=== PATIENT | male | born 1975 | race Caucasian/White ===

== ENCOUNTER 2025-06-16 17:29 | Emergency (ER) | payer BC, SELFPAY ==
--- OUTSIDE RECORDS SUMMARY | 2025-06-16 17:50 | XMS_ITS | Encounter Summary ---
Author Organization [facility] Address [address] [facility] [place] [address] Phone Care Team Providers Care Command And Control Name Role Phone Cristina Esquivellizet CARSON Primary Care Provider Reason for Visit * Reason Comments Other Encounter Details Date Type Department Care Team (Late st Contact Info) Description 06/06/2021 Refill [facility] [address] [place] [address] Po Ramos MD [address], [place] [address] Other Social History Tobacco Use Types Packs/Day Years Used Date Smoking Tobacco: Former Smokeless Tobacco: Never Alcohol Use Standard Drinks/Week Comments Yes 0 (1 standard drink = 0.6 oz pur e alcohol) PHQ-2 Answer Date Recorded PHQ-2 Score 0 09/26/2020 Sex and Gender Information Value Date Recorded Sex Assigned at Not on file Legal Sex Male 2:42 PM CDT Gender Identity Not on file Sexual Orientation Not on file COVID-19 Exposure Response Date Recorded In the last month, have you been in contact with someone who was confirmed or suspected to have Coronavirus / COVID-19? No / Unsure 05/24/2021 3:57 PM CDT documented as of this encounter Functional Status * Patient's Vision Adequate to Safely Complete Daily Activities Answer Date of Assessment Author Yes 12/15/2019 7:11 AM Brie Borden RN * Patient's Judgement Adequate to Safely Complete Daily Activities Answer Date of Assessment Author Yes 12/15/2019 7:11 AM Brie Borden RN documented as of this encounter Mental Status * Patient's Memory Adequate to Safely Complete Daily Activities Answer Entry Date Author Yes 12/15/2019 7:11 AM Brie Borden RN documented in this encounter Plan of Treatment Not on file documented as of this encounter Visit Diagnoses Diagnosis PSVT (paroxysmal supraventricular tachycardia) Paroxysmal supraventricular tachycardia documented in this encounter Care Teams Command And Control Relationship Specialty Start Date End Date Chin Esquivel APRN PCP - General 03/04/19 documented as of this encounter
--- OUTSIDE RECORDS SUMMARY | 2025-06-16 17:50 | XMS_ITS | Encounter Summary ---
Author Organization [facility] Address [address] [facility] [address] Phone Care Team Providers Care Chemist Helper Name Role Phone Chin Esquivel APRN Primary Care Provider Reason for Visit * Reason Comments Other Encounter Details Date Type Department Care Team (Late st Contact Info) Description 09/07/2020 Refill [facility] Family Medicine [facility] [address] [place] [address] Chin Esquivel APRN [address] [place] [address] Asthma, unspecified asthma severity, unspecified whether complicated, unspecified whether persistent Social History Tobacco Use Types Packs/Day Years Used Date Smoking Tobacco: Former Smokeless Tobacco: Never Alcohol Use Standard Drinks/Week Comments Yes 0 (1 standard drink = 0.6 oz pur e alcohol) Sex and Gender Information Value Date Recorded Sex Assigned at Not on file Legal Sex Male 2:42 PM CDT Gender Identity Not on file Sexual Orientation Not on file documented as of this encounter Functional Status [...] as of this encounter Visit Diagnoses Diagnosis Asthma, unspecified asthma severity, unspecified whether complicated, unspecified whether persistent documented in this encounter Care Teams Chemist Helper Relationship Specialty Start Date End Date Chin Esquivel, YAMILETH PCP - General 03/04/19 documented as of this encounter
--- OUTSIDE RECORDS SUMMARY | 2025-06-16 17:50 | XMS_ITS | Clinical Summary ---
Author Organization [facility] Address [address] [facility] [place] [address] Care Team Providers Care Erp Implementation Consultant Name Role Phone Chin Esquivel YAMILETH Primary Care Provider [phone] Allergies Active Allergy Reactions Criticality Noted Date Comments Amoxicillin Hives 04/01/2018 Mometasone-Formoterol 07/16/2015 Penicillins Low 11/06/2019 Other reaction(s): RASH Medications magnesium chloride (SLOW-MAG) 64 mg Tablet, Delayed Release (E.C.) Take 1 tablet (64 mg total) by mouth once daily. Active zinc sulfate (ZINCATE) 50 mg zinc (220 mg) capsule Take 220 mg by mouth once daily. Active sildenafiL (Viagra) 50 MG tabletIndication s:Erectile dysfunction, unspecified erectile dysfunction type Take 1 tablet (50 mg total) by mouth daily as needed for erectile dysfunction. 20 tablet 3 11/30/19 25 Active fluticasone propionate (FLONASE) 50 mcg/actuation nasal sprayIndications :Asthma, unspecified asthma severity, unspecified whether complicated, unspecified whether persistent 1 spray by Each Nostril route 2 (two) times a day. 16 g 3 11/30/19 25 Active fluticasone propion-salmeter oL (ADVAIR) 250-50 mcg/inhalation DISKUSIndication s:Moderate persistent asthma without complication Inhale 1 Inhalation into the lungs 2 (two) times a day. 60 each 3 11/30/19 25 Active meloxicam (MOBIC) 7.5 MG tabletIndication s:Chronic pain of left knee Take 1 tablet by mouth once daily 30 tablet 4 12/27/19 25 Active montelukast (SINGULAIR) 10 mg tabletIndication s:Asthma, unspecified asthma severity, unspecified whether complicated, unspecified whether persistent Take 1 tablet by mouth once daily 30 tablet 4 12/27/19 25 Active irbesartan (AVAPRO) 300 MG tabletIndication s:Essential hypertension Take 1 tablet by mouth once daily 30 tablet 4 12/27/19 25 Active amLODIPine (NORVASC) 5 MG tabletIndication s:Essential hypertension Take 1 tablet by mouth once daily 30 tablet 4 12/27/19 25 Active albuterol sulfate hfa 90 mcg/actuation aerosol inhalerIndicatio ns:Moderate persistent asthma without complication INHALE 2 PUFFS BY MOUTH EVERY 6 HOURS NEEDED FOR WHEEZING OR SHORTNESS OF BREATH 7 g 03/31/20 25 Active hydrOXYzine (ATARAX) 25 MG tabletIndication s:Flea bite of multiple sites TAKE 1 TABLET BY MOUTH THREE TIMES DAILY NEEDED FOR ITCHING 30 tablet 03/31/20 25 Active cyclobenzaprine (FLEXERIL) 10 MG tabletIndication s:Spasm of muscle of lower back Take 1 tablet by mouth three times daily as needed 90 tablet 03/31/20 25 Active cetirizine (ZyrTEC) 10 MG tabletIndication s:Asthma, unspecified asthma severity, unspecified whether complicated, unspecified whether persistent TAKE 1 TABLET BY MOUTH ONCE DAILY AT NIGHT 30 tablet 05/31/20 25 Active cetirizine (ZyrTEC) 10 MG tabletIndication s:Asthma, unspecified asthma severity, unspecified whether complicated, unspecified whether persistent TAKE 1 TABLET BY MOUTH ONCE DAILY AT NIGHT 30 tablet 02/08/20 25 025 Discontinued Active Problems Problem Noted Date Diagnosed Date Allergic rhinitis 09/26/2020 Fatigue 11/09/2019 Essential hypertriglyceridemia 11/09/2019 PSVT (paroxysmal supraventricular tachycardia) 1 12/11/2017 Hypertension 06/25/2017 Asthma 06/25/2017 Polycythemia Hernia, inguinal Encounters Date Type Department Care Team Description 05/31/2025 Refill [facility] Medicine - [place] [address] [place] [address] Chin Esquivel APRN Asthma, unspecified asthma severity, unspecified whether complicated, unspecified whether persistent 03/30/2025 Refill [facility] - [place] [address] [place] [address] Chin Esquivel APRN Moderate persistent asthma without complication; Flea bite of multiple sites; Spasm of muscle of lower back from Last 3 Months Family History Medical History Relation Name Comments Cancer Brother Arthritis Father Diabetes Father Heart disease Father Cancer Mother Relation Name Status Comments Brother Father Mother Alive Social History Tobacco Use Types Packs/Day Years Used Date Smoking Tobacco: Former Cigarettes Q uit: 03/29/2002 Smokeless Tobacco: Never Tobacco Cessation:Counseling Given: Not Answered Alcohol Use Standard Drinks/Week Comments Yes 0 (1 standard drink = 0.6 oz pur e alcohol) PHQ-2 Answer Date Recorded PHQ-2 Score 0 11/30/2024 Sex and Gender Information Value Date Recorded Sex Assigned at Not on file Legal Sex Male 2:42 PM CDT Gender Identity Not on file Sexual Orientation Not on file Last Filed Vital Signs Vital Sign Reading Time Taken Comments Blood Pressure 130/78 11/30/2024 9:18 AM VENDING MACHINE ATTENDANT Pulse 78 11/30/2024 9:18 AM VENDING MACHINE ATTENDANT Temperature 36.9 C (98.4 F) 06/25/2024 12:48 PM CDT Respiratory Rate 20 06/25/2024 12:48 PM CDT Oxygen Saturation 99% 11/30/2024 9:18 AM VENDING MACHINE ATTENDANT Inhaled Oxygen Concentration - - Weight 89.4 kg (197 lb 3.2 oz) 11/30/2024 9:18 A M VENDING MACHINE ATTENDANT Height 177.8 cm (5' 10 ) 11/30/2024 9:18 AM VENDING MACHINE ATTENDANT stated Body Mass Index 28.3 11/30/2024 9:18 AM VENDING MACHINE ATTENDANT Plan of Treatment Health Maintenance Due Date Last Done Comments CT Colonography 1974 FOBT 1974 Fit-DNA 1974 Sigmoidoscopy 1974 DTAP/TDAP/TD VACCINES (1 - Tdap) 1993 Pneumococcal 50+ years (1 of 2 - PCV) 1993 Colon Cancer Screening 2019 Colonoscopy 2019 Influenza Vaccine (#1) 2025 COVID-19 VACCINE ( - 2023-2 5 season) 2025 Postponed from 2024 (Patient Refused) Depression Screening (12+) 11/30/2025 11/30/2024 SHINGLES VACCINES (1 of 2) 11/30/2025 P ostponed from 2024 (Insurance / Financial) Lipid Panel 11/30/2027 11/30/2024, 03/29/2022, 09/26/2020 Tobacco Cessation and Counseling (12+) Completed 11/30/2024 HIV Screening Discontinued Hepatitis C Screening Discontinued Procedures Procedure Name Priority Date/Time Associated Diagnosis Comments LIPID PANEL Routine 11/30/2024 10:07 AM VENDING MACHINE ATTENDANT Annual physical exam Primary hypertension Essential hypertriglyceridemia from Last 3 Months or Most Recently Relevant to Health Maintenance Results * (ABNORMAL) Lipid panel (11/30/2024 10:07 AM VENDING MACHINE ATTENDANT) Cholesterol, Total 307(H) 120 - 200 mg/dl [facility] Triglycerides 129 <=149 mg/dl [facility] HDL-C, Total 60 40 - 60 mg/dl [facility] VLDL Calculated 26 <=30 mg/dl [facility] LDL Cholesterol Calc 221(H) <=99 mg/dl [facility] Cholesterol/HDL-C Ratio 5.1(H) <=5.0 ratio [facility] LDL, HDL-C Ratio 3.7(H) <=3.6 ratio [facility] Comment: Risk of Developing Coronary Heart Disease Female Guidelines Male Guidelines Up to 1.5 Up to 1.0 Low Risk 1.6 to 3.2 1.1 to 3.6 Average Risk 3.3 to 5.0 3.7 to 6.3 Above Average Risk 5.1 to 6.1 6.4 to 8.0 High Risk Non-HDL Cholesterol 247 mg/dl [facility] Comment:The reference range is the patient's target low density lipoprotein plus 30. Blood ENTIRE LEFT UPPER ARM / Unknown 11/30/2024 10:07 AM VENDING MACHINE ATTENDANT 11/30/2024 1:22 PM VENDING MACHINE ATTENDANT Chin Esquivel APRN LAB BLOOD ORDERABLES Final Result [facility] [address] [place] [phone], [place]UST from Last 3 Months or Most Recently Relevant to Health Maintenance Advance Directives * Full Code (Latest Code Status on File) Date Activated Date Inactivated Comments 12/15/2019 10:26 AM 12/15/2019 8:51 PM Question Answer Comments This code status was determined by: Patient * Full Code Date Activated Date Inactivated Comments 12/15/2019 6:54 AM 12/15/2019 10:26 AM Question Answer Comments This code status was determined by: Patient Care Teams Erp Implementation Consultant Relationship Specialty Start Date End Date Chin Esquivel APRN PCP - General 03/04/19
--- OUTSIDE RECORDS SUMMARY | 2025-06-16 17:50 | XMS_ITS | Encounter Summary ---
Author Organization [facility] Address [address] [facility] [place] [address] Phone Care Team Providers Care Mechanical Engineering Lecturer Name Role Phone Chin Esquivel APRN Primary Care Provider Reason for Visit * Reason Comments Other Encounter Details Date Type Department Care Team (Late st Contact Info) Description 01/05/2021 Refill [facility] Family Medicine [facility] [address] [place] [address] Chin Esquivel APRN [address] [place] [address] Erectile dysfunction, unspecified erectile dysfunction type Social History Tobacco Use Types Packs/Day Years [...] as of this encounter Visit Diagnoses Diagnosis Erectile dysfunction, unspecified erectile dysfunction type documented in this encounter Care Teams Mechanical Engineering Lecturer Relationship Specialty Start Date End Date Chin Esquivel APRN PCP - General 03/04/19 documented as of this encounter
--- OUTSIDE RECORDS SUMMARY | 2025-06-16 17:50 | XMS_ITS | Encounter Summary ---
Author Organization [facility] Address [address] [facility] [place] [address] Phone Care Team Providers Care Staff Scientist Name Role Phone Chin Esquivel APRN Primary Care Provider Reason for Visit * Reason Comments Other Encounter Details Date Type Department Care Team (Late st Contact Info) Description 12/05/[address] [facility] Family Medicine [facility] [address] [place] [address] Chin Esquivel APRN [address] [place] [address] Erectile dysfunction, unspecified erectile dysfunction type; PSVT (paroxysmal supraventricular tachycardia); Asthma, unspecified asthma severity, unspecified whether complicated, unspecified whether persistent; Spasm of muscle of lower back; Chronic pain of left knee Social History Tobacco Use Types Packs/Day Years [...] Entry Date Author Yes 12/15/2019 7:11 AM rBie Borden RN documented in this encounter Plan of Treatment Not on file documented as of this encounter Visit Diagnoses Diagnosis Erectile dysfunction, unspecified erectile dysfunction type PSVT (paroxysmal supraventricular tachycardia) Paroxysmal supraventricular tachycardia Asthma, unspecified asthma severity, unspecified whether complicated, unspecified whether persistent Spasm of muscle of lower back Chronic pain of left knee documented in this encounter Care Teams Staff Scientist Relationship Specialty Start Date End Date Cihn Esquivel APRN PCP - General 03/04/19 documented as of this encounter
--- OUTSIDE RECORDS SUMMARY | 2025-06-16 17:50 | XMS_ITS | Encounter Summary ---
Author Organization [facility] Address [address] [facility] [place] [address] Phone Care Team Providers Care Cotton Chopper Name Role Phone Chin Esquivel YAMILETH Primary Care Provider [phone] Reason for Visit * Reason Comments Other Encounter Details Date Type Department Care Team (Late st Contact Info) Description 06/07/2020 Refill [facility] Family Medicine - Jay Valadez [address] [place] [address] Kesha Castillo PAC [address] [place] [address] Asthma, unspecified asthma severity, unspecified whether complicated, unspecified whether persistent; Essential hypertension Social History Tobacco Use Types Packs/Day Years [...] Date Author Yes 12/15/2019 7:11 AM Brie Borden, MASHA documented in this encounter Plan of Treatment Not on file documented as of this encounter Visit Diagnoses Diagnosis Asthma, unspecified asthma severity, unspecified whether complicated, unspecified whether persistent Essential hypertension Unspecified essential hypertension documented in this encounter Care Teams Cotton Chopper Relationship Specialty Start Date End Date Chin Esquivel APRN PCP - General 03/04/19 documented as of this encounter
--- OUTSIDE RECORDS SUMMARY | 2025-06-16 17:50 | XMS_ITS | Encounter Summary ---
Author Organization [facility] Address [address] [facility] [place] [address] Phone Care Team Providers Care Clamp Remover Name Role Phone Chin Esquivel APRN Primary Care Provider Reason for Visit * Reason Comments Other Encounter Details Date Type Department Care Team (Late st Contact Info) Description 07/23/2023 Refill [facility] Family Medicine - Jay Valadez [address] [place] [address] Chin Esquivel APRN [address] [place] [address] Flea bite of multiple sites; Spasm of muscle of lower back; Chronic pain of left knee; Asthma, unspecified asthma severity, unspecified whether complicated, unspecified whether persistent; Essential hypertension; Erectile dysfunction, unspecified erectile dysfunction type Social History Tobacco Use Types Packs/Day Years Used Date Smoking Tobacco: Former Cigarettes Q uit: 03/29/2002 Smokeless Tobacco: Never Alcohol Use Standard Drinks/Week [...] Exposure Response Date Recorded In the last 10 days, have yo u been in contact with someone who was confirmed or suspected to have Coronavirus/COVID-19? No / Unsure 2023 11:37 AM CDT documented as of this encounter Functional [...] Brie Borden RN documented in this encounter Miscellaneous Notes * Telephone Encounter - Chin Esquivel APRN - 07/24/2023 9:41 AM CDT Patient needs an appointment scheduled prior to additional refills. Needs to see us at or establish with new PCP here. * Telephone Encounter - Anna Aguilar CMA - 07/24/2023 9:14 AM CDT Requested Prescriptions Pending Prescriptions Disp Refills ??? hydrOXYzine (ATARAX) 25 MG tablet [Pharmacy Med Name: hydrOXYzine HCl 25 MG Oral Tablet] 30 tablet 0 Sig: TAKE 1 TABLET BY MOUTH THREE TIMES DAILY NEEDED FOR ITCHING ??? cyclobenzaprine (FLEXERIL) 10 MG tablet [Pharmacy Med Name: Cyclobenzaprine HCl 10 MG Oral Tablet] 30 tablet 0 Sig: Take 1 tablet by mouth three times daily as needed ??? meloxicam (MOBIC) 7.5 MG tablet [Pharmacy Med Name: Meloxicam 7.5 MG Oral Tablet] 30 tablet 0 Sig: TAKE 1 TABLET BY MOUTH ONCE DAILY . APPOINTMENT REQUIRED FOR FUTURE REFILLS ??? cetirizine (ZyrTEC) 10 MG tablet [Pharmacy Med Name: Cetirizine HCl 10 MG Oral Tablet] 30 tablet 0 Sig: TAKE 1 TABLET BY MOUTH AT NIGHT ??? fluticasone propionate (FLONASE) 50 mcg/actuation nasal spray [Pharmacy Med Name: Fluticasone Propionate 50 MCG/ACT Nasal Suspension] 16 g 0 Sig: Use 1 spray(s) in each nostril twice daily ??? irbesartan (AVAPRO) 300 MG tablet [Pharmacy Med Name: Irbesartan 300 MG Oral Tablet] 30 tablet 0 Sig: Take 1 tablet by mouth once daily ??? montelukast (SINGULAIR) 10 mg tablet [Pharmacy Med Name: Montelukast Sodium 10 MG Oral Tablet] 30 tablet 0 Sig: Take 1 tablet by mouth once daily ??? sildenafiL (VIAGRA) 25 MG tablet [Pharmacy Med Name: Sildenafil Citrate 25 MG Oral Tablet] 30 tablet 0 Sig: TAKE 1 TABLET BY MOUTH ONCE DAILY NEEDED FOR ERECTILE DYSFUNCTION Last Office Visit Date: 01/23/2023 I am refilling medication based on the [facility] medication refill policy approved/signed by my provider. . documented in this encounter Plan of Treatment Not on file documented as of this encounter Visit Diagnoses Diagnosis Flea bite of multiple sites Spasm of muscle of lower back Chronic pain of left knee Asthma, unspecified asthma severity, unspecified whether complicated, unspecified whether persistent Essential hypertension Unspecified essential hypertension Erectile dysfunction, unspecified erectile dysfunction type documented in this encounter Care Teams Clamp Remover Relationship Specialty Start Date End Date Chin Esquivel APRN PCP - General 03/04/19 documented as of this encounter
--- OUTSIDE RECORDS SUMMARY | 2025-06-16 17:50 | XMS_ITS | Clinical Summary ---
Author Organization [facility] Address [address] [place] [address] Care Team Providers Care Coyote Hunter Name Role Phone AlvinRay leecoy CARSON Primary Care Provider Allergies Active Allergy Reactions Criticality Noted Date Comments Amoxicillin 11/06/2019 Medications budesonide-form oterol (SYMBICORT) 80-4.5 mcg/actuation inhaler Inhale 2 puffs 2 (two) times a day Rinse mouth with water after use to reduce aftertaste and incidence of candidiasis. Do not swallow. Active tiotropium (SPIRIVA) 18 mcg per inhalation capsule Place 1 capsule into inhaler and inhale once daily Active irbesartan (AVAPRO) 150 mg tablet Take 150 mg by mouth daily Active diltiazem LA (CARDIZEM LA) 120 mg 24 hr tablet Take 120 mg by mouth daily Active cetirizine (ZyrTEC) 10 mg tablet Take 10 mg by mouth daily Active montelukast (SINGULAIR) 10 mg tablet Take 10 mg by mouth nightly Active fluticasone propionate (FLONASE) 50 mcg/actuation nasal spray Administer 1 spray into each nostril daily Active cyclobenzaprine (FLEXERIL) 10 mg tablet Take 10 mg by mouth 3 (three) times a day as needed for muscle spasms Active Active Problems No known active problems Social History Tobacco Use Types Packs/Day Years Used Date Smoking Tobacco: Never Smokeless Tobacco: Never Sex and Gender Information Value Date Recorded Sex Assigned at Not on file Legal Sex Male 2:08 PM STRAINER MILL OPERATOR Gender Identity Not on file Sexual Orientation Not on file Last Filed Vital Signs Vital Sign Reading Time Taken Comments Blood Pressure 144/94 11/06/2019 10:07 AM STRAINER MILL OPERATOR Pulse 81 11/06/2019 10:07 AM STRAINER MILL OPERATOR Temperature 36.9 C (98.4 F) 11/06/2019 10:07 AM STRAINER MILL OPERATOR Respiratory Rate - - Oxygen Saturation 98% 11/06/2019 10: 07 AM STRAINER MILL OPERATOR Inhaled Oxygen Concentration - - Weight 85.6 kg (188 lb 12.8 oz) 019 10:07 AM STRAINER MILL OPERATOR Height - - Body Mass Index - - Plan of Treatment Health Maintenance Due Date Last Done Comments Cologuard every 3 years 1974 Colon Cancer Screening 5 yea r Sigmoidoscopy 1974 Colon Cancer Screening Annual FOBT 1974 Colonoscopy 1974 Colorectal Cancer Screening 1974 Annual Exam 1975 MMR Vaccines (1 of 1 - Stand marissa series) 1975 DTaP,Tdap,and Td Vaccines (1 - Tdap) 1981 Hepatitis B Vaccines (1 of 3 - 19+ 3-dose series) 1993 COVID-19 Vaccine ( - 2023-2 5 season) 2024 Pneumococcal Vaccine: 65+ Ye ars (1 of 1 - PCV) 2024 Shingrix (1 of 2) 2024 Depression Screening 11/24/2024 Influenza Vaccine (#1) 2025 HIB Vaccines Aged Out No longer eligi ble based on patient's age to complete this topic HPV Vaccines Aged Out No longer eligi ble based on patient's age to complete this topic Hepatitis A Vaccines Aged Out No long er eligible based on patient's age to complete this topic IPV Vaccines Aged Out No longer eligi ble based on patient's age to complete this topic Meningococcal Vaccine Aged Out No janice huong eligible based on patient's age to complete this topic Pneumococcal Vaccine: Pediat rics (0 to 5 Years) and At-Risk Patients (6 to 64 Years) Aged Out No longer eligible b ased on patient's age to complete this topic Insurance [facility] [place] [phone] Care Teams Coyote Hunter Relationship Specialty Start Date End Date Chin Esquivel APRN [address] [place] [phone] PCP - General Nurse Practitioner 11/06/19 Additional Source Comments The accuracy of any Insurance information included in this report is notguaranteed and should be verified by the recipient.[facility]
--- OUTSIDE RECORDS SUMMARY | 2025-06-16 17:50 | XMS_ITS | Encounter Summary ---
Author Organization [facility] Address [address] [facility] [place] [address] Phone Care Team Providers Care Near Eastern Archaeology Lecturer Name Role Phone Chin Esquivel APRN Primary Care Provider Reason for Visit * Reason Comments Other Encounter Details Date Type Department Care Team (Late st Contact Info) Description 06/07/2020 Refill [facility] Family Medicine [facility] [address] [place] [address] Chin Esquivel APRN [address] [place] [address] Asthma, unspecified asthma severity, unspecified [...] persistent documented in this encounter Care Teams Near Eastern Archaeology Lecturer Relationship Specialty Start Date End Date Chin Esquivel, YAMILETH PCP - General 03/04/19 documented as of this encounter
--- OUTSIDE RECORDS SUMMARY | 2025-06-16 17:50 | XMS_ITS | Referral Summary ---
Author Organization [facility] Address [address] [place] [address] Care Team Providers Care Director Of Category Management Name Role Phone Chin Esquivel APRN Primary Care Provider Encounters Date Type Department Care Team Description 05/31/2025 Refill [facility] [address] [place] [address] Chin Esquivel APRN Asthma, unspecified asthma severity, unspecified whether complicated, unspecified whether persistent 03/30/2025 [address]ill [address] [place] [place] [address] Chin Esquivel APRN Moderate persistent asthma without complication; Flea bite of multiple sites; Spasm of muscle of lower back from Last 3 Months Allergies Active Allergy Reactions Criticality Noted Date [...] Hypertension 06/25/2017 Asthma 06/25/2017 Polycythemia Hernia, inguinal Social History Tobacco Use Types Packs/Day Years [...] Comments Blood Pressure 130/78 11/30/2024 9:18 AM SEAL DELIVERY VEHICLE TEAM TECHNICIAN Pulse 78 11/30/2024 9:18 AM SEAL DELIVERY VEHICLE TEAM TECHNICIAN Temperature 36.9 C (98.4 F) 06/25/2024 12:48 PM CDT Respiratory Rate 20 06/25/2024 12:48 PM CDT Oxygen Saturation 99% 11/30/2024 9:18 AM SEAL DELIVERY VEHICLE TEAM TECHNICIAN Inhaled Oxygen Concentration - - Weight 89.4 kg (197 lb 3.2 oz) 11/30/2024 9:18 A M SEAL DELIVERY VEHICLE TEAM TECHNICIAN Height 177.8 cm (5' 10 ) 11/30/2024 9:18 AM SEAL DELIVERY VEHICLE TEAM TECHNICIAN stated Body Mass Index 28.3 11/30/2024 9:18 AM SEAL DELIVERY VEHICLE TEAM TECHNICIAN Functional Status * Patient's Vision Adequate to Safely Complete Daily Activities Answer Date of Assessment Author Yes 12/15/2019 7:11 AM SEAL DELIVERY VEHICLE TEAM TECHNICIAN * Patient's Judgement Adequate to Safely Complete Daily Activities Answer Date of Assessment Author Yes 12/15/2019 7:11 AM SEAL DELIVERY VEHICLE TEAM TECHNICIAN Mental Status * Patient's Memory Adequate to Safely Complete Daily Activities Answer Entry Date Author Yes 12/15/2019 7:11 AM SEAL DELIVERY VEHICLE TEAM TECHNICIAN Plan of Treatment Not on file Procedures Procedure Name Priority Date/Time Associated Diagnosis Comments LIPID PANEL Routine 11/30/2024 10:07 AM SEAL DELIVERY VEHICLE TEAM TECHNICIAN Annual physical exam Primary hypertension Essential hypertriglyceridemia from Last 3 Months or Most Recently Relevant to Health Maintenance Results * (ABNORMAL) Lipid panel (11/30/2024 10:07 AM SEAL DELIVERY VEHICLE TEAM TECHNICIAN) Cholesterol, Total 307(H) 120 - 200 mg/dl [facility] Triglycerides 129 <=149 mg/dl [facility] HDL-C, Total 60 40 - 60 mg/dl [facility] VLDL Calculated 26 <=30 mg/dl [facility] LDL Cholesterol Calc 221(H) <=99 mg/dl [facility] Cholesterol/HDL-C Ratio 5.1(H) <=5.0 ratio [facility] LDL, HDL-C Ratio 3.7(H) <=3.6 ratio [facility] Comment: Risk of Developing Coronary Heart Disease Female Guidelines Male Guidelines Up to 1.5 Up to 1.0 Low Risk 1.6 to 3.2 1.1 to 3.6 Average Risk 3.3 to 5.0 3.7 to 6.3 Above Average Risk 5.1 to 6.1 6.4 to 8.0 High Risk Non-HDL Cholesterol 247 mg/dl [facility] Comment:The reference range is the patient's target low density lipoprotein plus 30. Blood ENTIRE LEFT UPPER ARM / Unknown 11/30/2024 10:07 AM SEAL DELIVERY VEHICLE TEAM TECHNICIAN 11/30/2024 1:22 PM SEAL DELIVERY VEHICLE TEAM TECHNICIAN Chin Esquivel APRN LAB BLOOD ORDERABLES Final Result Performing Organization Address City/State/[facility] Co de Phone Number [facility] [address] [place] [id number] from Last 3 Months or Most Recently [...] status was determined by: Patient Care Teams Director Of Category Management Relationship Specialty Start Date End Date Chin Esquivel APRN PCP - General 03/04/19
--- OUTSIDE RECORDS SUMMARY | 2025-06-16 17:50 | XMS_ITS | Encounter Summary ---
Author Organization [facility] Address [address] [address] Phone Care Team Providers Care Supervisor Drying Name Role Phone Chin Esquivel APRN Primary Care Provider Reason for Visit * Reason Comments Other Encounter Details Date Type Department Care Team (Late st Contact Info) Description 01/14/2020 Refill [facility] Medicine [facility] [address] [place] [address] Chin Esquivel APRN [address] [place] [address] Essential hypertension; Asthma, unspecified asthma severity, unspecified whether complicated, [...] as of this encounter Visit Diagnoses Diagnosis Essential hypertension Unspecified essential hypertension Asthma, unspecified asthma severity, unspecified whether complicated, unspecified whether persistent documented in this encounter Care Teams Supervisor Drying Relationship Specialty Start Date End Date Chin Esquivel APRN PCP - General 03/04/19 documented as of this encounter
--- OUTSIDE RECORDS SUMMARY | 2025-06-16 17:50 | XMS_ITS | Referral Summary ---
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 Gender Identity Not on file Sexual Orientation Not on file Last Filed Vital Signs Vital Sign Reading Time Taken Comments Blood Pressure 144/94 11/06/2019 10:07 AM CELLOPHANE CASTING MACHINE REPAIRER Pulse 81 11/06/2019 10:07 AM CELLOPHANE CASTING MACHINE REPAIRER Temperature 36.9 C (98.4 F) 11/06/2019 10:07 AM CELLOPHANE CASTING MACHINE REPAIRER Respiratory Rate - - Oxygen Saturation 98% 11/06/2019 10: 07 AM CELLOPHANE CASTING MACHINE REPAIRER Inhaled Oxygen Concentration - - Weight 85.6 kg (188 lb 12.8 oz) 019 10:07 AM CELLOPHANE CASTING MACHINE REPAIRER Height - - Body Mass Index - - Plan of Treatment Not on file Insurance [facility] Care Teams Supervising Film Or Videotape Editor Relationship Specialty Start Date End Date Chin Esquivel APRN [address] [place] [address] PCP - General Nurse Practitioner 11/06/19 Additional Source Comments The accuracy of any Insurance information included in this report is notguaranteed and should be verified by the recipient.[facility]
--- OUTSIDE RECORDS SUMMARY | 2025-06-16 17:50 | XMS_ITS | Encounter Summary ---
Author Organization [facility] Address [address] [facility] [place] [address] Phone Care Team Providers Care Auto Locator Name Role Phone Chin Esquivel APRN Primary Care Provider Reason for Visit * Reason Comments Other Encounter Details Date Type Department Care Team (Late st Contact Info) Description 12/07/2020 Refill [facility] Family Medicine [facility] [address] [place] [address] Chin Esquivel APRN [address] [place] [address] Essential hypertension Social History Tobacco Use Types [...] Diagnoses Diagnosis Essential hypertension Unspecified essential hypertension documented in this encounter Care Teams Auto Locator Relationship Specialty Start Date End Date Chin Esquivel APRN PCP - General 03/04/19 documented as of this encounter
--- OUTSIDE RECORDS SUMMARY | 2025-06-16 17:50 | XMS_ITS | Encounter Summary ---
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 Gender Identity Not on file Sexual Orientation Not on file documented as of this encounter Plan of Treatment Not on file documented as of this encounter Visit Diagnoses Diagnosis Hypersomnia- Primary Hypersomnia, unspecified documented in this encounter Care Teams Doorkeeper Relationship Specialty Start Date End Date Chin Esquivel APRN [address] [place] [address] PCP - General Nurse Practitioner 11/06/19 documented as of this encounter Additional Source Comments The accuracy of any Insurance information included in this report is notguaranteed and should be verified by the recipient.[facility]
--- OUTSIDE RECORDS SUMMARY | 2025-06-16 17:50 | XMS_ITS | Patient Health Record ---
Author Organization [facility] Address [address] [facility] [place] [address] Care Team Providers Care Retail Pharmacist Name Role Phone Vignesh Juarez Unavailable [phone] Allergies Allergen (clinical drug ingredient) Drug/Non Drug Allergy documented on EMR Reaction Allergy Type Onset Date Status amoxicillin Amoxicillin hives Drug Allergy Act kobe Reason For Referral No Information Medications Medication SIG (Take, Route, Frequency, Duration) Notes Start Date End Date Status Cetirizine HCl 10 MG TAKE 1 TABLET BY MO UTH ONCE DAILY AT NIGHT Oral for 30 Active amLODIPine Besylate 5 MG TAKE 1 TABLET B Y MOUTH ONCE DAILY Oral for 30 Active Irbesartan 150 MG TAKE 2 TABLETS BY MO UTH ONCE DAILY Oral for 30 Active Fluticasone Propionate 50 MCG/ACT 1 spray(s) intranasally once a day Active Montelukast Sodium 10 MG 1 tab(s) orally once a day Active Albuterol Sulfate HFA 108 (90 Base) MCG/ACT INHALE 2 PUFFS BY MOUTH EVERY 6 HOURS NEEDED FOR WHEEZING Inhalation for 25 Active Social History Tobacco Use: Social History Observation Description Date Details (start date - stop date) Never Smoker NA - NA Smoking Question Answer Notes Are you a: nonsmoker Problems Problem Type SNOMED Code ICD Code Onset Dates Problem Status W/U Status Risk Notes Problem [id number] Essential hypertension (I10) Active confirmed Plan Of Treatment No Information Medical (General) History Medical History History ICD Code hypertension Polycythemia- too many rbc allergies Surgical History Surgery Date(Month/Year) ablasion surgery heart 11/2019 Hospitalization History Reason Date(Month/Year) hypertension
--- NOTE | 2025-06-16 17:58 | ECG_ITS ---
[facility] Test Date: 2025-06-16 Pat Name: Gabriel Marquez Department: Room: Gender: Male Slumber Room Attendant: : 1975 Requested By: Denia Burdick Order Number: [id number] Reading MD: Measurements Intervals [place] Rate: 87 P: 70 MN: 138 QRS: 26 QRSD: 121 T: 73 QT: 363 QTc: 437 Interpretive Statements SINUS RHYTHM SEPTAL MYOCARDIAL INFARCTION , OF INDETERMINATE AGE [40+ ms Q WAVE IN V1/V2] [id number] [id number]
[2025-06-16 18:00] VITALS: BP 134/87; PULSE 95; RESP 19; TEMP 36.7; O2SAT 97; BMI 25.0
--- NOTE | 2025-06-16 18:09 | XRR_ITS ---
PROCEDURE INFORMATION: Exam: XR Chest Exam date and time: 06/16/2025 7:21 PM Age: 49 years old Clinical indication: Shortness of breath TECHNIQUE: Imaging protocol: Radiologic exam of the chest. Views: 1 view. COMPARISON: No relevant prior studies available. FINDINGS: Lungs: Lungs are clear. Pleural spaces: There is no pleural effusion or pneumothorax. Heart/Mediastinum: Cardiomediastinal contours are unremarkable. Bones/joints: Bones are unremarkable. XR/XR chest 1V portable [id number] IMPRESSION: No acute findings.
[2025-06-16 18:15] VITALS: BP 143/83; PULSE 88
--- NOTE | 2025-06-16 18:22 | W.ED.SOB ---
HPI - SOB/Dyspnea General: Chief Complaint: Shortness of Breath/Dyspnea Stated Complaint: sob, heart issues Time Seen by Provider: 06/16/25 18:15 Related Data Allergies Allergy/AdvReac Type Severity Reaction Status Date / Time amoxicillin Allergy ALGY-Hives Verified 06/16/25 18:07 Course Vital Signs: Vital signs: Vital Signs Temperature 98.1 F 06/16/25 18:00 Pulse Rate 88 06/16/25 18:15 Respiratory Rate 19 H 06/16/25 18:00 Blood Pressure 143/83 06/16/25 18:15 Pulse Oximetry 97 06/16/25 18:00 Oxygen Delivery Me thod Room Air 06/16/25 18:00 Discharge Plan Discharge Condition: Stable Print Language: Faroese Coding Level of Care Code ED Transfill Technician for Pako Grider
--- NOTE | 2025-06-16 18:33 | ED_ITS ---
HPI - SOB/Dyspnea 2 General: Chief Complaint: Shortness of Breath/Dyspnea Stated Complaint: sob, heart issues Time Seen by Provider: 06/16/25 18:15 History of Present Illness: HPI Narrative: Patient is a 49-year-old male that presents to the emergency department with complaints of racing heart, shortness of breath diaphoresis and chest pain that [facility] Patient reports the sensation or complaint was similar to event prior to 2019. He was diagnosed at that time with SVT and ultimately underwent an ablation in 2019. Since that time he has not had any irregular heartbeats, palpitation, near syncope, chest pain or shortness of breath. Patient states that today's events were very reminiscent of his prior runs of SVT although not as severe as that event. Patient denies cough or congestion Denies fever or chills Related Data Allergies Allergy/AdvReac Type Severity Reaction Status Date / Time amoxicillin Allergy ALGY-Hives Verified 06/16/25 18:07 Review of Systems 2 General: Reports: 10 or more systems reviewed and unremarkable except in HPI and below Physical Exam 2 Const: COMMON NORMALS: no acute distress, patient oriented x3 and alert G ENERAL APPEARANCE: cooperative ORIENTATION/CONSCIOUSNESS: Yes awake, Yes oriented to person, Yes oriented to place and Yes oriented to time HENMT: COMMON NORMALS: normocephalic and atraumatic HEAD & SCALP: n ormocephalic and atraumatic FACE & SINUS: normal facial exam MOUTH: Normal oral and palatal mucosa present THROAT: posterior oropharynx normal Eye: COMMON NORMALS: Equal, round and reactive pupils present, EOMs intact bilaterally, conjunctivae normal and no scleral icterus GENERAL EYE: a ppearance normal, both eyes and all related structures ALIGNMENT: Yes alignment normal PERIORBITAL: periorbital findings normal CONJUNCTIVA: Yes conjunctivae normal PUPIL: Yes Equal, round and reactive pupils present Neck/C-Spine: COMMON NORMALS: full ROM GENERAL: Yes normal visual inspection Lymph: LYMPHATIC: no lymphadenopathy noted Chest: COMMONS NORMALS: normal inspection of the chest Breast/axilla inspection: Yes no chest deformity, asymmetry, normal contours, no nodules, masses, tenderness Resp: COMMON NORMALS: normal respiratory effort, No retractions, No use of accessory muscles and clear to auscultation bilaterally EFFORT & INSPECTION: Yes able to speak in complete sentences and Yes symmetric chest movement A USCULTATION: clear to auscultation bilaterally Cardio: COMMON NORMALS: regular rate, regular rhythm and Peripheral pulses 2+ throughout RATE: regular rate RHYTHM: regular rhythm PERIPHERAL PULSES: Peripheral pulses 2+ throughout GI: COMMON NORMALS: Normal to inspection, nondistended, normoactive bowel sounds present, Soft to palpation, non-tender and No hepatosplenomegaly present INSPECTION: Yes normal to inspection AUSCULTATION: Yes normoactive bowel sounds PALPATION: Yes Soft to palpation and Yes No hepatosplenomegaly present RECTAL EXAM: Yes deferred Extremity: COMMON NORMALS: normal to inspection GENERAL: Yes normal exam except as noted Neuro: COMMON NORMALS: patient oriented x3 SENSORIUM/ORIENTATION: Yes alert, Yes oriented to person, Yes oriented to place and Yes oriented to time CRANIAL NERVES: Yes CN normal except as noted Psych: COMMON NORMALS: mental status grossly normal, Normal thought process present, cooperative, activity/motor behavior normal, denies homicidal ideation and denies suicidal ideation THOUGHT PROCESS: Normal thought process present Skin: COMMON NORMALS: no rashes or lesions noted, no wounds and turgor normal GENERAL SKIN EXAM: no rashes or lesions noted and turgor normal Course 2 Vital Signs: Vital signs: Vital Signs Temperature 98.1 F 06/16/25 18:00 Pulse Rate 83 06/16/25 20:29 Respiratory Rate 19 H 06/16/25 18:00 Blood Pressure 133/88 06/16/25 20:29 Pulse Oximetry 97 06/16/25 20:29 Oxygen Delivery Me thod Room Air 06/16/25 20:29 MDM - SOB/Dyspnea Medical Decision Making Patient was evaluated in the emergency department today for racing heart and shortness of breath that was associated with diaphoresis and some chest pain. Patient underwent laboratory evaluation, chest x-ray and EKG testing. EKG completed at 2006 and 2099 reveal incomplete right bundle branch block that is unchanged from previous years. There is no ectopy, ST elevation or abnormal T wave inversion. His laboratory evaluation revealed no leukocytosis or anemias. He had no thrombocytopenia He has no electrolyte abnormalities, renal insufficiency or elevated bilirubin. His magnesium was within normal limits. He did have a troponin of less than 6 with a 2-hour delta of 0. His TSH was within normal limits His chest x-ray revealed no acute findings. His heart score was 2 points Patient does have a customer support representative. He has not seen him in 3 years but he will make an appointment for reevaluation. I am going to have our telephonic nurse case manager set up a Holter monitor. Patient needs to follow-up with primary care and/or cardiology. Patient is agreeable with plan Lab Data 06/16/25 18:30 06/16/25 18:30 Labs/Radiology: Radiology Impressions Chest X-Ray 06/16/25 18:09 IMPRESSION: No acute findings. Laboratory Results WBC 10.72 10^3/uL (3.29-11.43) 06/16/25 18:30 RBC 4.32 10^6/uL (3.85-5.65) 06/16/25 18:30 Hgb 14.40 g/dL (11.27-16.99) 06/16/25 18:30 Hct 41.4 % (37-53) 06/16/25 18:30 MCV 95.8 fl (82-101) 06/16/25 18:30 MCH 33.3 pg (27-33) H 06/16/25 18:30 MCHC 34.8 g/dL (30-55) 06/16/25 18:30 RDW 12.0 % (12.1-15.1) L 06/16/25 18:30 Plt Count 257 10^3/cmm (157-399) 06/16/25 18:30 MPV 8.7 fL (7.4-10.4) 06/16/25 18:30 Neut % (Auto) 66.7 % 06/16/25 18:30 Lymph % (Auto) 22.6 % 06/16/25 18:30 Sunflower % (Auto) 9.3 % 06/16/25 18:30 Eos % (Auto) 0.6 % 06/16/25 18:30 Baso % (Auto) 0.3 % 06/16/25 18:30 Neut # (Auto) 7.16 10^3/uL (1.8-7.7) 06/16/25 18:30 Lymph # (Auto) 2.4 10^3/uL (0.8-4.8) 06/16/25 18:30 Sunflower # (Auto) 1.0 10^3/uL (0.2-0.9) H 06/16/25 18:30 Eos # (Auto) 0.1 10^3/uL (0.0-0.8) 06/16/25 18:30 Baso # (Auto) 0.0 10^3/uL (0.0-0.1) 06/16/25 18:30 Nucleated RBC % (auto) 0 % 06/16/25 18:30 Nucleated RBCs # 0.0 /100WBC 06/16/25 18:30 Sodium 139 mmol/L (136-145) 06/16/25 18:30 Potassium 4.1 mmol/L (3.5-5.1) 06/16/25 18:30 Chloride 101 mmol/L (98-107) 06/16/25 18:30 Carbon Dioxide 21 mmol/L (22-29) L 06/16/25 18:30 Anion Gap 21.1 (5-19) H 06/16/25 18:30 BUN 10 mg/dL (6-20) 06/16/25 18:30 Creatinine 0.6 mg/dL (0.7-1.2) L 06/16/25 18:30 GFR Calculation 142.6 mL/min (90-130) H 06/16/25 18:30 Glucose 104 mg/dL (65-115) 06/16/25 18:30 Calculated Osmolality 287 mOsm/kg (285-295) 06/16/25 18:30 Calcium 9.0 mg/dL (8.5-10.5) 06/16/25 18:30 Magnesium 2.1 mg/dL (1.7-2.3) 06/16/25 18:30 Total Bilirubin 0.3 mg/dL (0.15-1.2) 06/16/25 18:30 AST 136 U/L (0-40) H 06/16/25 18:30 ALT 130 U/L (0-41) H 06/16/25 18:30 Alkaline Phosphatase 101 U/L (40-130) 06/16/25 18:30 Troponin T Baseline < 6 ng/L (0-15) 06/16/25 18:30 Troponin T 120 Minute < 6.0 ng/L (0-15) 06/16/25 20:16 Delta Troponin T 0 ABS# (0-10) 06/16/25 20:16 NT-Pro-B Natriuret Pep 56 pg/mL (0-125) 06/16/25 18:30 Total Protein 7.7 g/dL (6.6-8.7) 06/16/25 18:30 Albumin 4.7 g/dL (3.5-5.2) 06/16/25 18:30 Globulin 3.0 g/dL (1.3-4.6) 06/16/25 18:30 TSH 1.22 uIU/mL (0.27-4.20) 06/16/25 18:30 All radiology interpretation(s) finalized by discharge Discharge Plan Discharge Patient Disposition: Home Clinical Impression: Heart palpitations Condition: Stable Discharge Orders: Discharge ED (Routine); Ordered 06/16/25 Ordered By: Henry Dukes Discharge Diet: Advance as tolerated Discharge Activity: Resume usual activity Patient Instructions: Heart Palpitations (ED), Pain Management, Patient Portal & Claudio Instructions Activity Restrictions/Additional Instructions: Please monitor your symptoms closely. I have asked telephonic nurse case manager to set up a Holter monitor Please call your primary care doctor for reevaluation Please call your customer support representative for reevaluation Please return to the emergency department for new concerning or worsening symptoms Print Language: Vincentian Coding Level of Care Code ED Companion Caregiver for Pako Grider
[2025-06-16 18:54] LABS: Hematocrit 41.4 % (37-53); Hemoglobin 14.40 g/dL (11.27-16.99); Mean Corpuscular HGB Conc 34.8 g/dL (30-55); Mean Corpuscular Hemoglobin 33.3 pg (27-33); Mean Corpuscular Volume 95.8 fl (82-101); Nucleated Red Blood Cells % 0 %; Platelet Count 257 10^3/cmm (157-399); Red Blood Count 4.32 10^6/uL (3.85-5.65); White Blood Count 10.72 10^3/uL (3.29-11.43)
[2025-06-16 19:08] LABS: Troponin(5th) Baseline < 6 ng/L (0-15)
[2025-06-16 19:22] LABS: Alanine Aminotransferase 130 U/L (0-41); Albumin Level 4.7 g/dL (3.5-5.2); Alkaline Phosphatase 101 U/L (40-130); Anion Gap 21.1 (5-19); Aspartate Amino Transferase 136 U/L (0-40); Blood Urea Nitrogen 10 mg/dL (6-20); Calcium 9.0 mg/dL (8.5-10.5); Carbon Dioxide 21 mmol/L (22-29); Chloride 101 mmol/L (98-107); Creatinine Clr Calc Pharmacy 166.9292; Globulin 3.0 g/dL (1.3-4.6); Glucose 104 mg/dL (65-115); Magnesium 2.1 mg/dL (1.7-2.3); NT Pro B Type Natriuretic Pept 56 pg/mL (0-125); Osmolality Calculated 287 mOsm/kg (285-295); Potassium 4.1 mmol/L (3.5-5.1); Sodium 139 mmol/L (136-145); Thyroid Stimulating Hormone 1.22 uIU/mL (0.27-4.20); Total Protein 7.7 g/dL (6.6-8.7)
--- NOTE | 2025-06-16 20:07 | ECG_ITS ---
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 Measurements Intervals [place] Rate: 80 P: 72 MT: 155 QRS: 47 QRSD: 101 T: 60 QT: 373 QTc: 432 Interpretive Statements SINUS RHYTHM INCOMPLETE RIGHT BUNDLE BRANCH BLOCK [90+ ms QRS DURATION, TERMINAL R IN V1/V2, 40+ ms S IN I/aVL/V4/V5/V6] Compared to ECG 06/16/2025 18:06:17 Incomplete right bundle-branch block now present Myocardial infarct finding no longer present Electronically Signed On 06-18-2025 08:52:07 CDT by Kristopher Lee M.D. [email or web address]
[2025-06-16 20:29] VITALS: BP 133/88; PULSE 83; O2SAT 97
[2025-06-16 21:29] LABS: Troponin 5 2HR < 6.0 ng/L (0-15); Troponin 5 2HR Delta 0 ABS# (0-10)
[2025-06-16 21:55] VITALS: BP 130/86; PULSE 85; O2SAT 95
== END 2025-06-16 22:02 | disposition home or self-care (01) ==
PROVIDERS: Emergency Medicine; Emergency Provider Nurse Practitioner
DX: R00.2 Palpitations (principal)
CPT/HCPCS: 36415; 71045; 80053; 83735; 83880; 84443; 84484; 85025; 93005; 99285